=== PATIENT | female | born 1930 ===

== ENCOUNTER 2016-08-30 12:24 | Emergency (ER) | payer MEDICAID, OTHER ==
[2016-08-30 12:34] VITALS: TEMP 98.3
[2016-08-30 14:19] LABS: BASO % 0.4 % (0.0-2.0); EOS # 0.1 K/uL (0.0-0.7); EOS % 1.7 % (0.0-4.0); LYMPH # 1.5 K/uL (1.0-4.3); LYMPH % 25.8 % (20.0-40.0); MEAN CELL VOLUME 92.7 fL (81.0-99.0); MEAN CORPUSCULAR HEMOGLOBIN 31.1 pg (27.0-31.0); MEAN CORPUSCULAR HGB CONC 33.6 g/dL (33.0-37.0); MEAN PLATELET VOLUME 7.8 fL (7.2-11.7); MONO # 0.6 K/uL (0.0-0.8); MONO % 9.6 % (0.0-10.0); RED CELL DISTRIBUTION WIDTH 13.2 % (11.5-14.5); WHITE BLOOD COUNT 5.9 K/uL (4.8-10.8)
--- NOTE | 2016-08-30 14:19 | CT ---
PROCEDURE: CT HEAD WITHOUT CONTRAST. HISTORY: dizziness COMPARISON: None available. TECHNIQUE: Axial computed tomography images were obtained through the head/brain without intravenous contrast. Radiation dose: Total exam DLP = 796 mGy-cm. This CT exam was performed using one or more of the following dose reduction techniques: Automated exposure control, adjustment of the mA and/or kV according to patient size, and/or use of iterative reconstruction technique. FINDINGS: HEMORRHAGE: No intracranial hemorrhage. BRAIN: No mass effect or edema. Mild diffuse cerebral cortical atrophy is noted consistent with the patient's age. Mild to moderate areas of decreased density are seen in the white matter tracts consistent with chronic microvascular small-vessel ischemic changes. Posterior fossa is unremarkable. There is chronic calcific atherosclerotic change of the distal internal carotid arteries. VENTRICLES: Unremarkable. No hydrocephalus. CALVARIUM: Unremarkable. PARANASAL SINUSES: Moderate right sphenoid sinusitis is noted, more than likely chronic. Mild to moderate mucosal thickening is seen in the ethmoid air cells. MASTOID AIR CELLS: Unremarkable as visualized. No inflammatory changes. OTHER FINDINGS: None. IMPRESSION: No evidence of intracranial hemorrhage or recent infarct. Age related changes. Sinusitis.
[2016-08-30 14:40] LABS: CHLORIDE 102 mmol/L (98-107); SODIUM 137 mmol/L (132-148)
[2016-08-30 14:43] LABS: ALB/GLOB RATIO 1.4 (1.0-2.1); AST/SGOT 38 U/L (14-36); BILIRUBIN,TOTAL 0.8 mg/dL (0.2-1.3); BLOOD UREA NITROGEN 22 mg/dL (7-17); CARBON DIOXIDE 27 mmol/L (22-30); GFR AFRICAN-AMERICAN > 60; TOTAL PROTEIN 7.2 g/dL (6.3-8.3)
[2016-08-30 14:44] LABS: ALKALINE PHOSPHATASE 80 U/L (38-126); ALT/SGPT 21 U/L (9-52); CALCIUM 8.7 mg/dl (8.6-10.4); GLUCOSE,RANDOM 157 mg/dL (65-105); POTASSIUM 4.4 mmol/L (3.6-5.2)
--- NOTE | 2016-08-30 15:03 | C.PDOC ---
History Of Present Illness 86 y/o female pmhx presents to the ED with complaints of dizziness upon waking up this morning. Pt reports room-spinning sensation with nausea. Pt tried waking around at home and developed frontal right sided throbbing headache with sensation of wave of tingling going from head down entire body to feet. Denies vomiting, chest pain, palpitations, SOB or any other complaints. Pt with history of cataracts also reports blurred vision. Time Seen by Provider: 08/30/16 13:18 Chief Complaint (Nursing): Dizziness/Lightheaded History Per: Patient History/Exam Limitations: no limitations Onset/Duration Of Symptoms: Hrs Current Symptoms Are (Timing): Still Present Fall Associated With With Symptoms: No Severity: Mild Recent travel outside of the [place]: No - Symptoms Of CVA Recent Head Trauma: No Past Medical History Reviewed: Historical Data, Nursing Documentation, Vital Signs Vital Signs: Last Vital Signs Temp 98.3 F 08/30/16 12:28 Pulse 78 08/30/16 15:33 Resp 16 08/30/16 15:33 BP 128/88 08/30/16 15:33 Pulse Ox 95 08/30/16 18:57 Family History: States: Unknown Family Hx - Social History Hx Alcohol Use: No Hx Substance Use: No - Immunization History Hx Tetanus Toxoid Vaccination: No Hx Influenza Vaccination: No Hx Pneumococcal Vaccination: No Review Of Systems Constitutional: Negative for: Fever Cardiovascular: Negative for: Chest Pain, Palpitations Respiratory: Negative for: Shortness of Breath Gastrointestinal: Positive for: Nausea. Negative for: Vomiting Neurological: Positive for: Headache, Dizziness Physical Exam - Physical Exam Appears: Non-toxic, No Acute Distress Skin: Warm, Dry, No Rash Head: Atraumatic, Normacephalic Eye(s): bilateral: Normal Inspection, EOMI Nose: Normal Oral Mucosa: Moist Neck: Normal, Normal ROM, Supple Chest: Symmetrical Cardiovascular: Rhythm Regular, No Murmur Respiratory: Normal Breath Sounds, No Rales, No Rhonchi, No Wheezing Gastrointestinal/Abdominal: Normal Exam, Soft, No Tenderness Extremity: Bilateral: Atraumatic, Normal Color And Temperature, Normal ROM Pulses: Left Radial: Normal Neurological/Psych: Oriented x3, Normal Speech, Normal Cognition, Normal Cranial Nerves, No Cerebellar Signs, Normal Motor, Normal Sensation Disoriented To: Person ED Course And Treatment - Laboratory Results Result Diagrams: 08/30/16 14:16 08/30/16 14:16 Lab Interpretation: No Acute Changes ECG: Interpreted By Me, Viewed By Me (Dr Mukherjee) ECG Rhythm: Sinus Rhythm ECG Interpretation: No Acute Changes Interpretation Of ECG: normal sinus rhythm at 80 bpm, normal axis, no ischemic changes Rate From EC O2 Sat by Pulse Oximetry: 95 (room air) Pulse Ox Interpretation: Normal - CT Scan/US CT head Other Rad Studies (CT/US): Read By Radiologist, Radiology Report Reviewed CT/US Interpretation: PROCEDURE: CT HEAD WITHOUT CONTRAST. HISTORY: dizziness. COMPARISON: None available. TECHNIQUE: Axial computed tomography images were obtained through the head/brain without intravenous contrast. Radiation dose: Total exam DLP = 796 mGy-cm. This CT exam was performed using one or more of the following dose reduction techniques: Automated exposure control, adjustment of the mA and/or kV according to patient size, and/or use of iterative reconstruction technique. FINDINGS: HEMORRHAGE: No intracranial hemorrhage. BRAIN: No mass effect or edema. Mild diffuse cerebral cortical atrophy is noted consistent with the patient's age. Mild to moderate areas of decreased density are seen in the white matter tracts consistent with chronic microvascular small-vessel ischemic changes. Posterior fossa is unremarkable. There is chronic calcific atherosclerotic change of the distal internal carotid arteries. VENTRICLES: Unremarkable. No hydrocephalus. CALVARIUM: Unremarkable. PARANASAL SINUSES: Moderate right sphenoid sinusitis is noted, more than likely chronic. Mild to moderate mucosal thickening is seen in the ethmoid air cells. MASTOID AIR CELLS: Unremarkable as visualized. No inflammatory changes. OTHER FINDINGS: None. IMPRESSION: No evidence of intracranial hemorrhage or recent infarct. Age related changes. Sinusitis. Medical Decision Making Medical Decision Making: Plan: * CT head * EKG * IV fluids * antivert Progress: All diagnostics reviewed. CT head shows sinus inflammatory changes otherwise no acute abnormality. Patient remained well and in no acute distress. Upon reevaluation patient reports feeling much better, dizziness resolved. She is neurologically intact and hemodynamically stable. I discussed results with patient and family at bedside HIPAA compliant. Patient and family feel comfortable going home. Advise follow up with PCP Dr Draper Disposition Counseled Patient/Family Regarding: Diagnosis, Need For Followup, Rx Given - Disposition Referrals: [facility] [Outside] [facility] [Outside] Disposition: HOME/ ROUTINE Disposition Time: 15:19 Condition: STABLE Additional Instructions: Dominga laboratorios y tomografa computarizada tanner normales. [place] muestra sinusitis. 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 - Scribe Statement The provider has reviewed the documentation as recorded by the Scribnicole Daniel All medical record entries made by the Scribnicole were at my direction and personally dictated by me. I have reviewed the chart and agree that the record accurately reflects my personal performance of the history, physical exam, medical decision making, and the department course for this patient. I have also personally directed, reviewed, and agree with the discharge instructions and disposition.
[2016-08-30 15:33] VITALS: BP 128/88; PULSE 78; RESP 16
[2016-08-30 16:22] VITALS: O2SAT 95
== END 2016-08-30 15:33 | disposition home or self-care (01) ==
LOC: C.ER 12:24
DX: R42 Dizziness and giddiness (principal)